=== PATIENT | male | born 1995 | race Caucasian/White ===

== ENCOUNTER 2018-12-29 23:33 | Emergency (ER) | payer BC, MEDICAID ==
[~2018-12-29] VITALS: Ht 175.3 cm; Wt 90.9 kg
[2018-12-30] MEDS ORDERED: HYDR-4384 PO (00:17)
[2018-12-30 00:36] VITALS: BP 120/75
== END 2018-12-30 00:37 | disposition home or self-care (01) ==
LOC: ER 23:35
DX: S52.125A Nondisplaced fracture of head of left radius, initial encounter for closed fracture (principal); F17.200 Nicotine dependence, unspecified, uncomplicated; V80.010A Animal-rider injured by fall from or being thrown from horse in noncollision accident, initial encounter; Y93.89 Activity, other specified; Y92.89 Other specified places as the place of occurrence of the external cause; Y99.8 Other external cause status
CPT/HCPCS: 73080; 73110; 99283